=== PATIENT | male | born 2000 | race Caucasian/White ===

== ENCOUNTER 2025-01-31 18:05 | Emergency (ER) | payer OTHER ==
[~2025-01-31] VITALS: Ht 185.4 cm; Wt 60.0 kg
[~2025-01-31 18:05] MED LIST: IODINE1 GM MISC; NORCO 5-325 TA1 EACH PO; TYLENOL325 MG PO; VITAMIN C100 MG PO
[2025-01-31 20:46] VITALS: BP 133/80
== END 2025-01-31 20:52 | disposition home or self-care (01) ==
LOC: ED 18:05
DX: M23.92 Unspecified internal derangement of left knee (principal)
CPT/HCPCS: 73560; 73700; 99284-25